=== PATIENT | male | born 1990 | race Caucasian/White ===

== ENCOUNTER 2017-06-11 12:51 | Emergency (ER) | payer SELFPAY ==
[2017-06-11 15:50] VITALS: BP 141/88
== END 2017-06-11 15:50 | disposition home or self-care (01) ==
LOC: ED 12:51
DX: S61.102A Unspecified open wound of left thumb with damage to nail, initial encounter (principal); X58.XXXA Exposure to other specified factors, initial encounter; Y93.89 Activity, other specified; Y92.89 Other specified places as the place of occurrence of the external cause; Y99.8 Other external cause status